=== PATIENT | male | born 1990 | race Caucasian/White ===

== ENCOUNTER 2018-09-08 16:20 | Inpatient (IN) | payer MEDICARE ==
[~2018-09-08] VITALS: Ht 185.4 cm; Wt 67.7 kg
[2018-09-08 18:30] LABS: BASOPHILS # (AUTO) 0.1 /CMM (0.0-0.2); BASOPHILS % (AUTO) 1.2 % (0.0-2.0); EOSINOPHILS % (AUTO) 0.3 % (0.0-6.0); HEMATOCRIT 46 % (39-51); HEMOGLOBIN 15.1 g/dL (13.5-17.5); LYMPHOCYTES # (AUTO) 1.2 /CMM (0.8-4.8); LYMPHOCYTES % (AUTO) 14.9 % (20.0-44.0); MEAN CORPUSCULAR HGB CONC 33 g/dl (31.0-36.0); MEAN CORPUSCULAR VOLUME 89 fL (80-96); MONOCYTES # (AUTO) 0.9 /CMM (0.1-1.30); MONOCYTES % (AUTO) 11.3 % (2.0-12.0); NEUTROPHILS # (AUTO) 5.7 /CMM (1.8-8.9); NEUTROPHILS % (AUTO) 72.3 % (43.0-81.0); PLATELET COUNT (AUTO) 140 /CMM (150-450); RED BLOOD CELL COUNT(AUTO) 5.17 MIL/uL (4.5-6.0); WHITE BLOOD COUNT (AUTO) 7.9 K/uL (4.3-11.0)
[2018-09-08 18:41] LABS: CALCIUM, SERUM 10.2 mg/dL (8.5-10.1)
[2018-09-08 18:47] LABS: ALBUMIN 3.8 g/dL (3.4-5.0); BILIRUBIN,DIRECT 0.2 mg/dL (0.0-0.2); BILIRUBIN,TOTAL 1.1 mg/dL (0.2-1.0); TOTAL PROTEIN, SERUM 7.7 g/dL (6.4-8.2)
--- NOTE | 2018-09-08 19:43 | NUR ---
TO ER BED 13 C/O COUGH AND NAUSEA SINCE YESTERDAY. PT AA/OX 4. RFID DEVELOPER AT BEDSIDE. O2 SAT ROOM AIR 91%. PT ON 4LPM VIA NC. PA AWARE. SKIN PINK, WARM, MOIST. NAD. ALL OTHER VSS. PEDAL PULSES PRESENT. WILL CONTINUE TO MONITOR.
[2018-09-08] MEDS ORDERED: CEFTRIAXONE 1GM BAG (ER ONLY) 1 GM/50 ML PIGGYBACK IV ONE (20:00)
[2018-09-08] MEDS ORDERED: IV NS 0.9% 1,000 ML BAG IV ONE (20:00)
[2018-09-08] MEDS ORDERED: AZITHROMYCIN 500 MG in IV D5W 250 ML IV ONE (20:00)
[2018-09-08] MEDS ORDERED: CEFTRIAXONE 1 G VIAL ONE (20:07)
[2018-09-08] MEDS ORDERED: AZITHROMYCIN 500 MG VIAL ONE (20:25)
--- NOTE | 2018-09-08 21:00 | NUR ---
REPORT GIVEN TO M/S JAIRON LOPEZ
--- NOTE | 2018-09-08 21:19 | NUR ---
PT TRANSPORTED TO M/S UNIT WITH STABLE CONDITION. VSS. URIARTE.
[2018-09-08 21:20] VITALS: BP 100/53
[2018-09-08 21:25] VITALS: BP 100/53
[2018-09-08] MEDS ORDERED: Z GUARD REMEDY 2 OZ OINT TP PRN (22:00)
[2018-09-08] MEDS ORDERED: MAGNESIUM HYDROXIDE 30 ML UDC PO PRN (22:00)
[2018-09-08] MEDS ORDERED: ONDANSETRON HCL/PF 4 MG/2 ML VIAL IVP PRN (22:00)
[2018-09-08] MEDS ORDERED: HYDROCODONE/APAP 5/325MG 1 EACH TABLET PO PRN (22:00)
[2018-09-08] MEDS ORDERED: MAG HYDROX/AL HYDROX/SIMETH 30 ML UDC PO PRN (22:00)
--- NOTE | 2018-09-08 22:28 | NUR ---
RECEIVE PT FROM E.R [facility] AT 2120 PT A/OX 3 AMBULATORY, CAREGIVER AT BEDSIDE, AWAKE NORMAL TONE NORMAL IN APPEARANCE, AFEBRILE, HEAD TO TOE ASSESSMENT IS DONE SKIN IS INTACT, + DIFFUSE RHONCHI IN LUNGS, NO RALES OR WHEEZES, ENCOURAGE AND EDUCATE PT SPIT SECRETIONS. HEAD OF BED ELEVATED AT ALL TIMES. ON 4LPM VIA NC 02 SAT AT 99%. NO SOB, RESPIRATIONS EVEN AND UNLABORED, NO EDEMA, KEPT CLEAN AND DRY AND COMFORT. SAFERTY MEASURES IN PLACE. WILL MONITOR
[2018-09-08] MEDS: IV NS 0.9% 1,000 ML IV PRN (22:38)
--- NOTE | 2018-09-09 04:37 | NUR ---
MS RN NOTES CHECKED TEMP AT 102.2 RELAYED TO HOSPITALIST SPOKE TO ANJANA VIGIL PER YARITZA ORDER BLOOD CULTURE NOTED AND CARRIED OUT. WILL CONTINUE TO MONITOR TYLENOL GIVEN AND COOLING MEASURES RENDERED.
[2018-09-09] MEDS: ACETAMINOPHEN 325 MG TABLET PO PRN (04:51)
--- NOTE | 2018-09-09 05:37 | NUR ---
MS RN NOTES TEMP AT 98.7
--- NOTE | 2018-09-09 06:09 | NUR ---
MS RN CLOSING NOTES ASLEEP AND EASILY AWAKEN, ON 4LPM VIA NC 02 SAT AT 98% NOT IN DISTRESS. RESPIRATION EVEN AND UNLABORED. KEPT CLEAN AND DRY AND COMFORTABLE, ALL NURSING CARE RENDERED. NEEDS ATTENDED AND ANTICIPATED. GOOD SKIN CARE. NO COMPLAIN OF PAIN. ON LOW BED AT ALL TIMES TO ENSURE SAFETY. SAFE HAZARD FREE ENVIRONMENT PROVIDED. CALL LIGHT WITHIN EASY TO REACH. WILL ENDORSE NEXT SHIFT CONTINUITY OF CARE.
[2018-09-09 07:16] LABS: LYMPHOCYTES # (AUTO) 0.7 /CMM (0.8-4.8)
--- NOTE | 2018-09-09 07:20 | NUR ---
RN OPENING NOTES RECEIVED PT. IN BED A&OX3. CAREGIVER IS AT BEDSIDE. PT. IS BREATHING ON OXYGEN AT 4L/MIN VIA NASAL CANNULA. PT. STARTED TO DESATURATE SP02 85%, PT. WAS PLACED ON A SIMPLE MASK ON 6L/MIN. NO S/S OF ACUTE DISTRESS. PT.'S PULSE WAS >100 -110 BPM. CHARGE NURSE WAS MADE AWARE, AND TERRY SORTO NP WAS CONTACTED FOR NEW ORDERS. TERRY SORTO ORDERED BREATHING TREATMENTS PRN. IV FLUIDS RUNNING AT 75 ML/HR. URINAL IS AT BEDSIDE. PT. IS COUGHING UP PHLEGM AND HAS A PRODUCTIVE COUGH. RESPIRATORY SPUTUM CULTURE WAS DONE AT THE BEDSIDE. BED IS IN LOWEST, AND LOCKED POSITION, AND CALL LIGHT IS WITHIN REACH. ALL NEEDS MET. WILL CONTINUE TO ASSESS AND MONITOR.
[2018-09-09 07:27] LABS: BASOPHILS % (AUTO) 0.3 % (0.0-2.0); HEMATOCRIT 43 % (39-51); HEMOGLOBIN 14.6 g/dL (13.5-17.5); LYMPHOCYTES % (AUTO) 10.1 % (20.0-44.0); MEAN CORPUSCULAR HGB CONC 34 g/dl (31.0-36.0); MEAN CORPUSCULAR VOLUME 91 fL (80-96); MONOCYTES # (AUTO) 0.6 /CMM (0.1-1.30); MONOCYTES % (AUTO) 8.8 % (2.0-12.0); NEUTROPHILS # (AUTO) 5.7 /CMM (1.8-8.9); NEUTROPHILS % (AUTO) 80.8 % (43.0-81.0); PLATELET COUNT (AUTO) 117 /CMM (150-450); RED BLOOD CELL COUNT(AUTO) 4.72 MIL/uL (4.5-6.0); WHITE BLOOD COUNT (AUTO) 7.1 K/uL (4.3-11.0)
[2018-09-09 07:33] LABS: ALBUMIN 3.3 g/dL (3.4-5.0); BILIRUBIN,DIRECT 0.6 mg/dL (0.0-0.2); BILIRUBIN,TOTAL 1.6 mg/dL (0.2-1.0); CALCIUM, SERUM 9.2 mg/dL (8.5-10.1); CREATININE 0.9 mg/dL (0.6-1.3); MAGNESIUM 1.9 mg/dL (1.8-2.4); PHOSPHORUS 2.8 mg/dL (2.5-4.9); POTASSIUM 3.6 mmol/L (3.5-5.1); TOTAL PROTEIN, SERUM 7.2 g/dL (6.4-8.2)
[2018-09-09 08:28] VITALS: BP 99/55
[2018-09-09 08:32] LABS: THYROID STIMULATING HORMONE 0.483 uIU/mL (0.358-3.74)
[2018-09-09] MEDS: IPRATROPIUM NEB FS 0.5 MG/2.5 ML AMPUL.NEB NEB PRN ×2 (09:02→16:35)
[2018-09-09] MEDS: ALBUTEROL FS 2.5 MG/3 ML VIAL.NEB NEB PRN ×2 (09:02→16:35)
[2018-09-09] MEDS ORDERED: DIPH25CA6 PO (09:50)
[2018-09-09] MEDS ORDERED: [UNRECOGNIZED DRUG - CODE] PO (09:50)
[2018-09-09] MEDS ORDERED: HYDR-4354 PO (09:50)
[2018-09-09] MEDS ORDERED: PSYL1PAC8 PO (09:50)
[2018-09-09] MEDS ORDERED: DOCU-141 PO (09:50)
[2018-09-09] MEDS ORDERED: FLUT16SP16 BNOSTRILS (09:50)
[2018-09-09] MEDS ORDERED: LORA10TA7 PO (09:50)
[2018-09-09] MEDS ORDERED: PARO10TA4 PO (09:50)
[2018-09-09] MEDS ORDERED: METH54TA PO (09:50)
[2018-09-09] MEDS ORDERED: CHOL100044 PO (09:50)
[2018-09-09] MEDS ORDERED: VENL75TA4 PO (09:50)
[2018-09-09] MEDS ORDERED: MELA5TAB PO (09:50)
[2018-09-09] MEDS: IV NS 0.9% 1,000 ML IV PRN ×2 (11:15→23:20)
[2018-09-09] MEDS ORDERED: diphenhydrAMINE HCL 25 MG CAPSULE PO PRN (11:30)
[2018-09-09] MEDS ORDERED: HYDROCODONE/APAP 10/325MG 1 EA TABLET PO PRN (11:30)
[2018-09-09] MEDS ORDERED: LORATADINE 10 MG TABLET PO PRN (11:30)
[2018-09-09] MEDS ORDERED: VENLAFAXINE 37.5 MG TABLET PO SCH (11:30)
[2018-09-09] MEDS ORDERED: CONCERTA 54 MG PO SCH (12:00)
[2018-09-09] MEDS: FLUTICASONE PROPIONATE 16 GM BOTTLE NS SCH (12:00)
[2018-09-09] MEDS ORDERED: VENLAFAXINE XR 75 MG CAP.SR.24H PO SCH ×2 (12:00)
[2018-09-09] MEDS: CHOLECALCIFEROL 1,000 UNIT TABLET (VIT D3) PO SCH (12:09)
[2018-09-09] MEDS: DOCUSATE SODIUM 100 MG CAPSULE PO SCH ×2 (12:09→17:11)
[2018-09-09] MEDS: VENLAFAXINE 37.5 MG TABLET PO SCH ×2 (12:09→17:14)
[2018-09-09 16:08] VITALS: BP 106/61
[2018-09-09] MEDS: LACTOBACILLUS RHAMNOSUS GG 1 EACH CAP.SPRINK PO SCH (17:11)
[2018-09-09] MEDS: ENSURE ENLIVE CHOC 237 ML CAN PO SCH (18:05)
--- NOTE | 2018-09-09 18:48 | NUR ---
RN CLOSING NOTES PT. IS IN BED AWAKE, A&OX3. CAREGIVER IS AT BEDSIDE. BREATHING UNLABORED ON OXYGEN AT 2L/MIN VIA NASAL CANNULA. NO SOB, PT. REPORTED HIS BREATHING IS DEFINITELY BETTER THAN THIS MORNING. PT. HAS A PRODUCTIVE COUGH, AND IS PRODUCING THICK, FROTHY GREEN PHLEGM. NO S/S OF ACUTE DISTRESS. IV FLUIDS RUNNING AT 75 ML/HR. URINAL IS WITHIN REACH. BED IS IN LOWEST, AND LOCKED POSITION. 2 SIDE RAILS UP, AND INSTRUCTED PT. TO USE CALL LIGHT WITHIN REACH. ALL NEEDS MET. WILL ENDORSE REPORT TO NURSE.
--- NOTE | 2018-09-09 19:35 | NUR ---
RN INITIAL NOTES: RECEIVED REPORT FROM ELMA RN, PT IN BED, SLEEPING, AROUSES TO TACTILE STIMULI. APPEARS CALM AND COMFORTABLE, CAREGIVER AT BED SIDE. PT ON 2L OXYGEN VIA NC, RESPIRATION EVEN AND UNLABORED. PT HAS BREATHING TREATMENT Q4HRS NEEDED. SAFETY PRECAUTIONS FOR FALL INITIATED, CALL LIGHT IN REACH, WILL CONTINUE MONITORING PT.
[2018-09-09 19:56] VITALS: BP 99/48
[2018-09-09 20:00] VITALS: BP 99/48
--- NOTE | 2018-09-09 20:00 | NUR ---
RN NOTES: CAREGIVER LEFT WITHOUT SAYING ANYTHING, I WAS TOLD ON THE REPORT THERE WILL BE 14/06 CAREGIVER TO THE PT.
--- NOTE | 2018-09-09 20:30 | NUR ---
RN NOTES: OFFERED BREATHING TREATMENT, BUT PT REFUSED, STATED NOT THIS TIME, DENIES ANY SOB, SPO2 ON 2L 95%, RESPIRATION EVEN AND UNLABORED
--- NOTE | 2018-09-09 20:30 | NUR ---
Patient is developmentally delayed due to Autism. He lives locally alone. He has 24hrs caregiver [facility]. He is ambulatory, requires assistance with adl's. Current plan is to return home with caregiver providing ride. Addendum: 09/09/18 at 2252 by BELKIS HO RN Amended: Links added.
--- NOTE | 2018-09-09 21:00 | NUR ---
RN NOTES: SPOKED WITH ROLLER SKATER BELKIS, INFORMED THAT PT'S CAREGIVER WAS NOT IN THE ROOM, AND LEFT AN HOUR AGO,AND THAT THERE'S NO NUMBER PROVIDED BY THE CAREGIVER FOR US TO CALL. BELKIS STATED TO CALL HER ONCE CAREGIVER CAME BACK BECAUSE SHE NEEDS TO TALK TO CAREGIVER.
[2018-09-09] MEDS: CEFTRIAXONE 1 G in IV D5W 50 ML IV SCH (21:12)
[2018-09-09 22:00] VITALS: BP 100/51
--- NOTE | 2018-09-09 22:00 | NUR ---
RN NOTES: PREVIOUS IV ACCESS NOTED TO BE LEAKING, REMOVED AND APPLIED PRESSURE DRESSING. RESTARTED NEW IV ON RIGHT FA G20 USING ACCU VEIN, WITH GOOD BLOOD RETURN, SECURED WITH DRESSING AND PROPERLY LABELED.
--- NOTE | 2018-09-09 22:10 | NUR ---
RN NOTES: OFFERED TO THE PT THE BREATHING TREATMENT, DISCUSSED ITS IMPORTANCE, BUT PT STATED NOT THIS TIME, AND HE WANTS IT TOMORROW MORNING INSTEAD. INFORMED PT IN CASE OF ANY SHORTNESS OF BREATH OR DIFFICULTY BREATHING, TO CALL RN SO WE CAN HAVE RT GIVE HIS BREATHING TREATMENT. INFORMED PT HE CAN GET BREATHING TREATMENT Q4HRS NEEDED. PT AGREE AND UNDERSTAND
[2018-09-09] MEDS: AZITHROMYCIN 500 MG in IV D5W 250 ML IV SCH (22:27)
--- NOTE | 2018-09-09 22:30 | NUR ---
rn notes: complete linen change provided by business department chair, also bed bath provided at this time
--- NOTE | 2018-09-09 23:16 | NUR ---
N NOTES: OFFERED BREATHING TREATMENT TO PT TO HELP COUGH OUT MORE SECRETIONS, BUT PT REFUSED, SPO2 ON 2L NC IS 94%, RESPIRATION EVEN AND UNLABORED, NO DISTRESS NOTED. WILL CONTINUE TO MONITOR
--- NOTE | 2018-09-10 00:52 | NUR ---
RN NOTES: PT REQUESTED FOR BREATHING TREATMENT, CONTACTED RT AT EXT [phone], STATED HE WILL COME SOON HE'S DONE WITH HIS PRN TREATMENT, PT SPO2 ON 2L IS 90%, INCREASE O2 FLOW RATE TO 3L, SPO2 STABLE ON 93%. DENIES ANY SOB BUT PT CLAIMED HE'S STILL COUGHING THICK FROTHY SPUTUM
[2018-09-10] MEDS: IPRATROPIUM NEB FS 0.5 MG/2.5 ML AMPUL.NEB NEB PRN ×3 (01:12→17:55)
[2018-09-10] MEDS: ALBUTEROL FS 2.5 MG/3 ML VIAL.NEB NEB PRN ×3 (01:12→17:55)
--- NOTE | 2018-09-10 06:13 | NUR ---
RN NOTES: PT REQUESTING FOR HIS BREATHING TREATMENT, CONTACTED EXT [phone] FOR ASSIGNED RT FOR THE UNIT, P[ER RT ITS THEIR CHANGE OF SHIFT AND THE EARLIEST THE NEXT RT CAN COME WILL BE 0700AM, INFORMED RT IF THERE'S ANY WAY SOMEONE CAN COME TO DO THE TREATMENT IT WOULD BE GREATLY APPRECIATED. CHECKED PT'S SPO2, PT CURRENTLY ON 3L NC, SPO2 STABLE ON 94%
--- NOTE | 2018-09-10 06:17 | NUR ---
am care: second bed bath provided by lorena schneider at this time, also complete linen change provided
--- NOTE | 2018-09-10 06:20 | NUR ---
rn notes: assigned rt came to do the breathing treatment. greatly appreciated by the pt
--- NOTE | 2018-09-10 06:32 | NUR ---
rN CLOSING NOTES: PT rEMAINS A/O X3 HOWEVEr DELAYED DUE TO AUTISM, NO CAREGIVER CAME LAST NIGHT EVEN THOUGH PER REPORT IT WAS MENTIONED THAT PT HAS 24/7 CAREGIVER. PT REMAINS ON 3L OXYGEN VIA NC, RESPIRATION EVEN AND UNLABORED, SPO2 REMAINS TO BE STABLE ON 94_%. REMAINS WITH THICK FROTHY SPUTUM, PT ABLE TO COUGH OUT PHLEGM IN THE GREEN PLASTIC BAG. DENIES ANY PAIN AT THIS TIME. RFA IV ACCESS REMAINS PATENT AND FLUSHING WELL, INFUSING WITH NS AT 75ML/HR. VS REMAINS STABLE, NEEDS ATTENDED. BED ALARM SECURED, SAFETY PRECAUTIONS FOR FALL REMAINS ENGAGED, CALL LIGHT IN REACH, WILL ENDORSE TO DAY RN FOR SHADY.
[2018-09-10 07:08] LABS: BASOPHILS % (AUTO) 0.2 % (0.0-2.0); EOSINOPHILS % (AUTO) 1.1 % (0.0-6.0); HEMATOCRIT 40 % (39-51); HEMOGLOBIN 13.9 g/dL (13.5-17.5); LYMPHOCYTES # (AUTO) 1.2 /CMM (0.8-4.8); LYMPHOCYTES % (AUTO) 20.8 % (20.0-44.0); MEAN CORPUSCULAR HGB CONC 35 g/dl (31.0-36.0); MEAN CORPUSCULAR VOLUME 91 fL (80-96); MONOCYTES # (AUTO) 0.4 /CMM (0.1-1.30); MONOCYTES % (AUTO) 7.5 % (2.0-12.0); NEUTROPHILS # (AUTO) 3.9 /CMM (1.8-8.9); NEUTROPHILS % (AUTO) 70.4 % (43.0-81.0); PLATELET COUNT (AUTO) 113 /CMM (150-450); WHITE BLOOD COUNT (AUTO) 5.6 K/uL (4.3-11.0)
[2018-09-10 07:10] LABS: CALCIUM, SERUM 8.6 mg/dL (8.5-10.1); CREATININE 0.7 mg/dL (0.6-1.3); POTASSIUM 3.6 mmol/L (3.5-5.1)
--- NOTE | 2018-09-10 07:15 | NUR ---
MS RN OPENING NOTE RECEIVED PATIENT IN BED. SLEEPING, EASILY AROUSED WITH VERBAL STIMULI. ORIENTED X2. ON 3L O2 VIA NC, TOLERATING WELL. IN NO APPARENT DISTRESS OR DISCOMFORT AT THIS TIME. RESPIRATIONS EVEN AND UNLABORED. DENIES PAIN AND SOB AT THIS TIME. PATIENT IS ABLE TO COMMUNICATE NEEDS. PATIENT WITH BRP, ABLE TO AMBULATE BUT ENCOURAGED TO USE CALL LIGHT IS NEEDS TO USE BATHROOM. RIGHT FA 20G IVC WITH FLUIDS RUNNING AT 75ML/HR. PATIENT KEPT CLEAN AND COMFORTABLE. ALL NEEDS ATTENDED. BED IN LOW LOCKED POSITION, SIDE RAILS UP X2, CALL LIGHT WITHIN EASY REACH. WILL CONTINUE TO MONITOR.
[2018-09-10 08:00] VITALS: BP 92/43
[2018-09-10] MEDS ORDERED: CONCERTA 54 MG PO SCH (09:00)
[2018-09-10] MEDS: LACTOBACILLUS RHAMNOSUS GG 1 EACH CAP.SPRINK PO SCH ×2 (09:13→16:37)
[2018-09-10] MEDS: PAROXETINE HCL 10 MG TABLET PO SCH (09:13)
[2018-09-10] MEDS: CHOLECALCIFEROL 1,000 UNIT TABLET (VIT D3) PO SCH (09:13)
[2018-09-10] MEDS: DOCUSATE SODIUM 100 MG CAPSULE PO SCH ×2 (09:13→16:37)
[2018-09-10] MEDS: VENLAFAXINE 37.5 MG TABLET PO SCH ×2 (09:14→16:37)
[2018-09-10] MEDS: FLUTICASONE PROPIONATE 16 GM BOTTLE NS SCH (09:15)
[2018-09-10] MEDS: ENSURE ENLIVE CHOC 237 ML CAN PO SCH ×2 (09:19→16:42)
[2018-09-10 16:00] VITALS: BP 113/66
[2018-09-10] MEDS: ACETAMINOPHEN 325 MG TABLET PO PRN (17:25)
--- NOTE | 2018-09-10 17:39 | NUR ---
PATIENT'S TEMPERATURE IS 100.8 ORALLY. APPLIED ICE PACKS ADMINISTERED PRN TYLENOL 650MG AT THIS TIME. DR. HOPPER NOTIFIED. WILL CONTINUE TO MONITOR AND CARRY OUT FURTHER ORDERS.
--- NOTE | 2018-09-10 17:41 | NUR ---
RECEIVED ORDER FROM DR HOPPER TO OBTAIN BLOOD CX IF BODY TEMPERATURE IS ABOVE 101. ORDER READ BACK AND VERIFIED. WILL CARRY OUT INDICATED.
--- NOTE | 2018-09-10 18:30 | NUR ---
PATIENT'S BODY TEMPERATURE DECREASED TO 98.4 AT THIS TIME. WILL CONTINUE TO MONITOR.
--- NOTE | 2018-09-10 19:20 | NUR ---
MS RN CLOSING NOTE PATIENT IN BED. ALERT ORIENTED X2. ON 2L O2 VIA NC, TOLERATING WELL. IN NO APPARENT DISTRESS OR DISCOMFORT AT THIS TIME. RESPIRATIONS EVEN AND UNLABORED. DENIES PAIN AND SOB AT THIS TIME. AFEBRILE AT THIS TIME. PATIENT IS ABLE TO COMMUNICATE NEEDS. PATIENT WITH BRP, ABLE TO AMBULATE, ENCOURAGED TO USE CALL LIGHT IF NEEDS TO USE BATHROOM, COMPLIANT. RIGHT FA 20G IVC WITH FLUIDS RUNNING AT 75ML/HR. PATIENT KEPT CLEAN AND COMFORTABLE. ALL ORDERS RENDERED, MEDICATIONS ADMINISTERED. CAREGIVER AT BEDSIDE AT THIS TIME. ALL NEEDS ATTENDED. BED IN LOW LOCKED POSITION, SIDE RAILS UP X2, CALL LIGHT WITHIN EASY REACH. WILL ENDORSE TO PM NURSE FOR SHADY.
--- NOTE | 2018-09-10 19:30 | NUR ---
RN INITIAL NOTES: RECEIVED REPORT FROM ADILSON DE LA O. PT RESTING IN BED, MET WITH CAREGIVER MIKE AT BED SIDE. PT ON 2L OXYGEN VIA NC, RESPIRATION EVEN AND UNLABORED, PT DENIES ANY SOB, DENIES ANY PAIN OR DISCOMFORT AT THIS TIME. GREEN PLASTIC BAG FOR COUGHING OUT SECRETIONS HANDY AT BEDSIDE. IV ACCESS RFA PATENT AND FLUSHING WELL INFUSING WITH NS AT 75ML/HR. PT REPORTED TO HAVE FEVER AROUND 1700 WHICH HE WAS GIVEN TYLENOL AND COOLING MEASURES FOR THAT., ALSO DR HOPPER MADE AWARE BY DAY RN, WITH ORDERS TO COLLECT BLOOD DRAW ONCE FEVER OVER 101. DISCUSSED PLAN OF CARE TO THE PT AND CAREGIVER. SAFETY PRECAUTIONS FOR FALL INITIATED, CALL LIGHT IN REACH, WILL CONTINUE MONITORING PT.
--- NOTE | 2018-09-10 19:50 | NUR ---
RN NOTES: TEMP AT THIS TIME 99.9, COOLING MEASURES CONTINUED, REMOVED EXTRA THICK BLANKETS, LAST TYLENOL GIVEN 1724. WILL CONTINUE MONITORING PT.
[2018-09-10 19:51] VITALS: BP 111/60
[2018-09-10 20:00] VITALS: BP 111/60
[2018-09-10] MEDS: CEFTRIAXONE 1 G in IV D5W 50 ML IV SCH (21:13)
--- NOTE | 2018-09-10 21:49 | NUR ---
RN NOTES: CONNECTED PT TO CONTINUOUS PULSE OXIMETRY, SPO2 94-95% ON 2L OXYGEN VIA NC. TEMP 98.6, WILL CONTINUE MONITORING PT
[2018-09-10] MEDS: AZITHROMYCIN 500 MG in IV D5W 250 ML IV SCH (21:50)
--- NOTE | 2018-09-10 22:42 | NUR ---
RN NOTES: MET WITH ONE OF PT'S CAREGIVER, SHE STATED SHE ALSO LIVE IN THE SAME APARTMENT WITH THE PT, AND SHE LOOKS AFTER THE PT, STATED SHE WILL STAY FOR A WHILE BUT WILL NOT BE ABLE TO STAY TILL AM BECAUSE SHE HERSELF IS COUGHING AND NEEDS SOME REST. UNDERSTAND THE SITUATION. RN WILL BE SITTING OUTSIDE PT'S ROOM TO MAKE SURE WHEN PT NEEDS SOMETHING IT WILL BE RESPONDED RIGHT AWAY.
[2018-09-11 00:14] VITALS: BP 100/55
[2018-09-11 04:24] VITALS: BP 98/55
[2018-09-11] MEDS: IV NS 0.9% 1,000 ML IV PRN ×2 (04:27→21:02)
--- NOTE | 2018-09-11 05:30 | NUR ---
RN NOTES: BEEN OFFERING BREATHING TREATMENT TO THE PT, BUT PT REFUSED STATED HE'S BREATHING IS BETTER.
--- NOTE | 2018-09-11 06:00 | NUR ---
RN NOTES: PER WILLY CHAMPION HE OFFERED BED BATH/SPONGEBATH BUT PT REFUSED, STATED HE DOESN'T FEEL LIKE IT. EDUCATE PT REGARDING IMPORTANCE OF GOOD PERSONAL HYGIENE.WILL OFFER AGAIN IN AM
--- NOTE | 2018-09-11 06:43 | NUR ---
RN CLOSING NOTES: PT REMAINS A/O X3, REMAINS ON 2L OXYGEN VIA NC, RESPIRATION EVEN AND UNLABORED, REMAINS ON CONTINUOUS PULSE OXIMETRY, SPO2 REMAINS STABLE ON 95%. RFA IV ACCESS REMAINS PATENT AND FLUSHING WELL, INFUSING WITH NS AT 75ML/HR. PT REMAINS WITH THICK FROTHY SPUTUM, PT ABLE TO COUGH OUT PHLEGM IN THE GREEN BAG. LATEST TEMP 98.5. VS REMAINS STABLE, NEEDS ATTENDED. BED ALARM SECURED, SAFETY PRECAUTIONS FOR FALL REMAINS ENGAGED, CALL LIGHT IN REACH, WILL ENDORSE TO DAY RN FOR SHADY.
[2018-09-11 07:00] LABS: CALCIUM, SERUM 9.3 mg/dL (8.5-10.1); CREATININE 0.8 mg/dL (0.6-1.3); MAGNESIUM 2.4 mg/dL (1.8-2.4); PHOSPHORUS 2.9 mg/dL (2.5-4.9); POTASSIUM 3.6 mmol/L (3.5-5.1)
--- NOTE | 2018-09-11 07:15 | NUR ---
MS RN OPENING NOTE RECEIVED PATIENT IN BED. ALERT ORIENTED X2. ON 2L O2 VIA NC, TOLERATING WELL WITH 98% SATURATION. PATIENT IS AFEBRILE AT THIS TIME. IN NO APPARENT DISTRESS OR DISCOMFORT AT THIS TIME. RESPIRATIONS EVEN AND UNLABORED. DENIES PAIN AND SOB AT THIS TIME. PATIENT IS ABLE TO COMMUNICATE NEEDS. PATIENT WITH BRP, ABLE TO AMBULATE BUT ENCOURAGED TO USE CALL LIGHT IF NEEDS TO USE BATHROOM. RIGHT FA 20G IVC WITH FLUIDS RUNNING AT 75ML/HR. PATIENT KEPT CLEAN AND COMFORTABLE. ALL NEEDS ATTENDED. BED IN LOW LOCKED POSITION, SIDE RAILS UP X2, CALL LIGHT WITHIN EASY REACH. WILL CONTINUE TO MONITOR.
[2018-09-11 07:57] LABS: ALBUMIN 2.9 g/dL (3.4-5.0); BILIRUBIN,DIRECT 0.4 mg/dL (0.0-0.2); BILIRUBIN,TOTAL 0.8 mg/dL (0.2-1.0); TOTAL PROTEIN, SERUM 7.3 g/dL (6.4-8.2)
[2018-09-11 08:00] VITALS: BP 92/52
[2018-09-11] MEDS: PAROXETINE HCL 10 MG TABLET PO SCH (09:21)
[2018-09-11] MEDS: VENLAFAXINE 37.5 MG TABLET PO SCH ×2 (09:21→16:21)
[2018-09-11] MEDS: CHOLECALCIFEROL 1,000 UNIT TABLET (VIT D3) PO SCH (09:21)
[2018-09-11] MEDS: DOCUSATE SODIUM 100 MG CAPSULE PO SCH ×2 (09:21→16:21)
[2018-09-11] MEDS: LACTOBACILLUS RHAMNOSUS GG 1 EACH CAP.SPRINK PO SCH ×2 (09:21→16:21)
[2018-09-11] MEDS: ENSURE ENLIVE CHOC 237 ML CAN PO SCH ×2 (09:22→16:21)
[2018-09-11] MEDS: FLUTICASONE PROPIONATE 16 GM BOTTLE NS SCH (09:22)
--- NOTE | 2018-09-11 10:00 | NUR ---
PATIENT IS SATURATING 98% ON 2L O2, TITRATED OXYGEN DOWN TO 1L PER DR. HOPPER'S INSTRUCTIONS. SATURATION 94-95% AT THIS TIME. WILL CONTINUE TO MONITOR.
[2018-09-11] MEDS: ALBUTEROL FS 2.5 MG/3 ML VIAL.NEB NEB PRN (11:34)
[2018-09-11] MEDS: IPRATROPIUM NEB FS 0.5 MG/2.5 ML AMPUL.NEB NEB PRN (11:34)
--- NOTE | 2018-09-11 12:00 | NUR ---
PATIENT RECEIVED BREATHING TREATMENT. REMOVED NASAL CANNULA AT THIS TIME TO ASSESS PATIENT'S O2 SAT ON ROOM AIR. WILL CONTINUE TO MONITOR.
--- NOTE | 2018-09-11 12:20 | NUR ---
PATIENT'S O2 SATURATION DECREASED TO 90-91% ON ROOM AIR, PATIENT DENIES SOB. WILL CONTINUE WITH 1L O2 AT THIS TIME TO KEEP SATURATION ABOVE 93%. WILL CONTINUE TO MONITOR.
[2018-09-11 16:00] VITALS: BP 112/68
--- NOTE | 2018-09-11 18:15 | NUR ---
MS RN CLOSING NOTE PATIENT IN BED. ALERT ORIENTED X2. ON 1L O2 VIA NC, TOLERATING WELL. IN NO APPARENT DISTRESS OR DISCOMFORT AT THIS TIME. RESPIRATIONS EVEN AND UNLABORED. DENIES PAIN AND SOB AT THIS TIME. AFEBRILE AT THIS TIME. PATIENT IS ABLE TO COMMUNICATE NEEDS. PATIENT WITH BRP, ABLE TO AMBULATE, ENCOURAGED TO USE CALL LIGHT IF NEEDS TO USE BATHROOM, COMPLIANT. RIGHT FA 20G IVC WITH FLUIDS RUNNING AT 75ML/HR. PATIENT KEPT CLEAN AND COMFORTABLE. ALL ORDERS RENDERED, MEDICATIONS ADMINISTERED. ALL NEEDS ATTENDED. BED IN LOW LOCKED POSITION, SIDE RAILS UP X2, CALL LIGHT WITHIN EASY REACH. WILL ENDORSE TO PM NURSE FOR SHADY.
--- NOTE | 2018-09-11 19:40 | NUR ---
RN INITIAL NOTES: RECEIVED REPORT FROM ADILSON DE LA O. PT RESTING IN BED, CAREGIVER MIKE AT BED SIDE. PT ON 1.5L OXYGEN VIA NC, RESPIRATION EVEN AND UNLABORED, PT DENIES ANY SOB, DENIES ANY PAIN OR DISCOMFORT AT THIS TIME. NOTED IV ACCESS RFA IV ACCESS TO BE INFILTRATED, REMOVE IV, PRESSURED DRESSING APPLIED, WILL START A NEW IV ACCESS AFTER FINISHING REPORT. DISCUSSED PLAN OF CARE TO THE PT AND CAREGIVER. SAFETY PRECAUTIONS FOR FALL INITIATED, CALL LIGHT IN REACH, WILL CONTINUE MONITORING PT.
[2018-09-11 20:00] VITALS: BP 119/69
--- NOTE | 2018-09-11 20:30 | NUR ---
RN NOTES: RESTARTED NEW IV ACCESS ON RIGHT HAND USING G20, WITH GOOD BLOOD RETURN NOTED, SECURED WITH CLEAR TRANSPARENT DRESSING, PROPERLY LABELED,
[2018-09-11] MEDS: CEFTRIAXONE 1 G in IV D5W 50 ML IV SCH (21:02)
[2018-09-11 21:06] VITALS: BP 119/64
--- NOTE | 2018-09-11 21:18 | NUR ---
RN NOTES: TRIAL FOR PT ON ROOM AIR, SPO2 93%-95%, WILL CONTINUE MONITORING PT
[2018-09-11] MEDS: AZITHROMYCIN 500 MG in IV D5W 250 ML IV SCH (21:57)
--- NOTE | 2018-09-12 | NUR ---
RN NOTES: OFFERED BREATHING TREATMENT, PT REFUSED STATED HE DOESNT FEEL THE NEED FOR IT, HE STATED HE'S FEELING BETTER AND BREATHING BETTER
[2018-09-12 04:00] VITALS: BP 100/69
--- NOTE | 2018-09-12 06:41 | NUR ---
RN CLOSING NOTES: PT REMAINS A/O X3, REMAINS ON 1.5L OXYGEN VIA NC, RESPIRATION EVEN AND UNLABORED, REMAINS ON CONTINUOUS PULSE OXIMETRY, SPO2 REMAINS STABLE ON 94%. ON ROOM AIR, SPO2 93%, STABLE. RIGHT HAND A IV ACCESS REMAINS PATENT AND FLUSHING WELL, INFUSING WITH NS AT 75ML/HR. VS REMAINS STABLE, NEEDS ATTENDED. BED ALARM SECURED, SAFETY PRECAUTIONS FOR FALL REMAINS ENGAGED, CALL LIGHT IN REACH, WILL ENDORSE TO DAY RN FOR SHADY.
[2018-09-12 07:00] LABS: BASOPHILS % (AUTO) 0.4 % (0.0-2.0); EOSINOPHILS % (AUTO) 3.2 % (0.0-6.0); HEMATOCRIT 41 % (39-51); LYMPHOCYTES # (AUTO) 1.7 /CMM (0.8-4.8); LYMPHOCYTES % (AUTO) 32.2 % (20.0-44.0); MEAN CORPUSCULAR HGB CONC 34 g/dl (31.0-36.0); MEAN CORPUSCULAR VOLUME 90 fL (80-96); MONOCYTES # (AUTO) 0.4 /CMM (0.1-1.30); MONOCYTES % (AUTO) 8.5 % (2.0-12.0); NEUTROPHILS # (AUTO) 2.9 /CMM (1.8-8.9); NEUTROPHILS % (AUTO) 55.7 % (43.0-81.0); PLATELET COUNT (AUTO) 165 /CMM (150-450); RED BLOOD CELL COUNT(AUTO) 4.59 MIL/uL (4.5-6.0); WHITE BLOOD COUNT (AUTO) 5.2 K/uL (4.3-11.0)
[2018-09-12 07:24] LABS: CALCIUM, SERUM 9.1 mg/dL (8.5-10.1); CREATININE 0.8 mg/dL (0.6-1.3); MAGNESIUM 2.3 mg/dL (1.8-2.4); PHOSPHORUS 3.5 mg/dL (2.5-4.9); POTASSIUM 3.6 mmol/L (3.5-5.1)
--- NOTE | 2018-09-12 07:30 | NUR ---
RN NOTES PATIENT ASLEEP AT THIS TIME, CAREGIVER AT BEDSIDE, PATIENT EASILY AWAKEN. NO S/SX OF PAIN OR DISCOMFORT OBSERVED. ON O2 AT 1.5LPM VIA NC FOR COMFORT, NO SOB NOTED. KEPT COMFORTABLE, IVF INFUSING AND TOLERATING WELL, SAFETY MEASURES IN PLACED, CALL LIGHT WITHIN REACH, WILL CONTINUE TO MONITOR.
[2018-09-12] MEDS: ENSURE ENLIVE CHOC 237 ML CAN PO SCH (08:00)
[2018-09-12 08:13] VITALS: BP 99/60
[2018-09-12] MEDS: DOCUSATE SODIUM 100 MG CAPSULE PO SCH (08:41)
[2018-09-12] MEDS: CHOLECALCIFEROL 1,000 UNIT TABLET (VIT D3) PO SCH (08:41)
[2018-09-12] MEDS: LACTOBACILLUS RHAMNOSUS GG 1 EACH CAP.SPRINK PO SCH (08:41)
[2018-09-12] MEDS: PAROXETINE HCL 10 MG TABLET PO SCH (08:41)
[2018-09-12] MEDS: VENLAFAXINE 37.5 MG TABLET PO SCH (08:41)
[2018-09-12] MEDS: FLUTICASONE PROPIONATE 16 GM BOTTLE NS SCH (08:41)
[2018-09-12] MEDS ORDERED: ENSURE ENLIVE 237 ML LIQUID (VANILLA) PO SCH (09:00)
[2018-09-12] MEDS ORDERED: LACT1CAP72 PO (11:57)
[2018-09-12] MEDS ORDERED: GUAI5SYR PO (11:57)
[2018-09-12] MEDS ORDERED: AMOX-430 PO (11:57)
[2018-09-12] MEDS ORDERED: GUAIFENESIN/D-METHORPHAN HB 5 ML UDC PO SCH (12:00)
[2018-09-12] MEDS ORDERED: AMOX/CLAVULANATE 875 MG TABLET PO SCH (12:00)
[2018-09-12 15:51] VITALS: BP 112/76
--- NOTE | 2018-09-12 16:45 | NUR ---
RN NOTES PATIENT A/OX3, WITH CAREGIVER CONOR AT BEDSIDE, RECEIVED DISCHARGE INSTRUCTIONS AND VERBALIZED UNDERSTANDING. CAREGIVER CONOR STATED THAT THE PATIENT WILL BE GIVEN A 24/7 C[facility]GIVER [facility] ACC[facility] TO HER COORDINATOR. PRESCRIPTION PROVIDED AND EXPLAINED. PATIENT UNDERSTOOD MEDICATION INSTRUCTIONS. PIV REMOVED ON LEFT HAND. BELONGINGS RECONCILED. SKIN ASSESSMENT COMPLETED, SKIN DRY AND INTACT. PATIENT IN ROOM AIR SHOWS 95-98%, STILL NOTED WITH COUGHING BUT NO SHORTNESS OF BREATH OBSERVED. PATIENT LEFT THE FACILITY IN STABLE CONDITION, ACCOMPANIED BY CAREGIVER.
== END 2018-09-12 16:45 | disposition home or self-care (01) | DRG 193 ==
LOC: ER 16:23 → MED 20:58
PROVIDERS: ADMIT Nurse Practitioner Acute Care; ATTEND Nurse Practitioner Acute Care
DX: J15.9 Unspecified bacterial pneumonia (principal); J96.01 Acute respiratory failure with hypoxia; F84.0 Autistic disorder; Z68.1 Body mass index [BMI] 19.9 or less, adult; E44.1 Mild protein-calorie malnutrition; D69.6 Thrombocytopenia, unspecified; G47.00 Insomnia, unspecified; Z98.890 Other specified postprocedural states; E80.6 Other disorders of bilirubin metabolism; K80.20 Calculus of gallbladder without cholecystitis without obstruction; F41.9 Anxiety disorder, unspecified
CPT/HCPCS: 36415; 71045-TC; 71046; 76700-TC; 80048-TC; 80061-TC; 80074; 80076-TC; 83735-TC; 83880; 84100-TC; 84443-TC; 85025-TC; 87040-TC; 87070-TC; 87081-TC; 94799-TC; A4216; A4606; A6402; G0378; J0456; J0696; J7030; J7060; Z7610

== ENCOUNTER 2018-09-12 18:04 | Emergency (ER) | payer MEDICARE ==
[~2018-09-12] VITALS: Ht 182.9 cm; Wt 70.3 kg
[~2018-09-12 18:04] MED LIST: AMOX-430 PO; CHOL100044 PO; DIPH25CA6 PO; DOCU-141 PO; FLUT16SP16 BNOSTRILS; GUAI5SYR PO; HYDR-4354 PO; LACT1CAP72 PO; LORA10TA7 PO; MELA5TAB PO; METH54TA PO; PARO10TA4 PO; PSYL1PAC8 PO; VENL75TA4 PO; [UNRECOGNIZED DRUG - CODE] PO
--- NOTE | 2018-09-12 18:10 | NUR ---
AAOX3, BIBRA 89 C/O CHOKED WITH TERIAutoShagKI SANDWICH, PT FELT SOMETHING STUCK IN HIS THROAT. RR IS EVEN AND UNLABORED WITH NAD NOTED. SKIN IS WARM AND DRY. AWAITING MD FOR EVAL. SPEAKS IN FULL SENTENCES.
[2018-09-12] MEDS ORDERED: GLUCAGON,HUMAN RECOMBINANT 1 MG/VIAL VIAL IV ONE (19:00)
[2018-09-12] MEDS ORDERED: GLUCAGON,HUMAN RECOMBINANT 1 MG/VIAL VIAL ONE (19:12)
[2018-09-12] MEDS ORDERED: WATER FOR INJECTION,STERILE 10 ML ONE (19:14)
--- NOTE | 2018-09-12 20:33 | NUR ---
PT OK TO DISCHARGE HOME. IV removed. Catheter intact and site benign. Pressure and 4x4 applied to site. No bleeding noted.Patient discharged to home in stable condition. Written and verbal after care instructions given. Patient verbalizes understanding of instruction.
[2018-09-12 20:34] VITALS: BP 108/62
== END 2018-09-12 20:35 | disposition home or self-care (01) ==
LOC: ER 18:06
DX: F45.8 Other somatoform disorders (principal); J18.9 Pneumonia, unspecified organism
CPT/HCPCS: 71046; 96374; 99284; J1610; A4606; Z7610

== ENCOUNTER 2019-01-10 13:52 | Emergency (ER) | payer MEDICARE, MEDICAID ==
[~2019-01-10] VITALS: Ht 182.9 cm; Wt 70.3 kg
[2019-01-10 14:11] VITALS: BP 100/63
[2019-01-10] MEDS ORDERED: DEXAMETHASONE SOLN 1 MG/1 ML UDC PO ONE (15:30)
[2019-01-10] MEDS ORDERED: DEXAMETHASONE 1 MG TABLET ONE (15:34)
[2019-01-10] MEDS ORDERED: DEXAMETHASONE 4 MG TABLET ONE (15:35)
[2019-01-10] MEDS ORDERED: DEXAMETHASONE 1 MG TABLET PO ONE (16:00)
== END 2019-01-10 15:50 | disposition home or self-care (01) ==
LOC: ER 13:58
DX: R05 Cough (principal); F84.0 Autistic disorder; Z87.01 Personal history of pneumonia (recurrent); Z79.899 Other long term (current) drug therapy
CPT/HCPCS: 71046; 99283; A4606; J8540 ×2

== ENCOUNTER 2019-10-01 22:29 | Emergency (ER) | payer MEDICARE, MEDICAID ==
[~2019-10-01] VITALS: Ht 182.9 cm; Wt 70.3 kg
[~2019-10-01 22:29] MED LIST changes: +DIPH25CA51 PO; -DIPH25CA6 PO
--- NOTE | 2019-10-01 22:30 | NUR ---
BIBSELClifford W/ CAREGIVER C/O INTERMITTENT NOSEBLEED EVERY NIGHT SINCE WED. NO ACTIVE NOSEBLEED UPON ARRIVAL IN ED. TO ER BED 13, HOOKED TO MONITOR, CHANGED TO HOSP GOWN, AWAITING MD STARKEY.
--- NOTE | 2019-10-01 22:58 | NUR ---
DR SHORE AT BEDSIDE
--- NOTE | 2019-10-01 23:27 | NUR ---
Patient discharged to home with caregiver in stable condition. Written and verbal after care instructions given. Patient verbalizes understanding of instruction.
[2019-10-01 23:28] VITALS: BP 101/52
== END 2019-10-01 23:28 | disposition home or self-care (01) ==
LOC: ER 22:32
DX: R04.0 Epistaxis (principal); Z79.899 Other long term (current) drug therapy

== ENCOUNTER 2022-12-30 10:56 | Emergency (ER) | payer MEDICARE, OTHER ==
[~2022-12-30] VITALS: Ht 182.9 cm; Wt 81.6 kg
--- NOTE | 2022-12-30 11:25 | NUR ---
RECEIVED pt 32 yrs male walking in from home accompany allen CASTORENA ( [phone] FOR EVALUATION of elevated potusume
--- NOTE | 2022-12-30 11:45 | NUR ---
INsertde ANGO CATHETER G 18 ON RT AC BLOOD DROW AND SENT TO LAB
--- NOTE | 2022-12-30 11:50 | NUR ---
SEEN BY DR. ASCENCIO
[2022-12-30] MEDS ORDERED: Calcium Gluconate 1GM/10ML 4.65 MEQ in IV NS 0.9% 100 ML IV ONE (12:00)
[2022-12-30 12:18] LABS: BASOPHILS % (AUTO) 0.3 % (0.0-2.0); EOSINOPHILS % (AUTO) 1.7 % (0.0-6.0); HEMATOCRIT 47 % (39-51); HEMOGLOBIN 15.6 g/dL (13.5-17.5); LYMPHOCYTES # (AUTO) 1.9 K/uL (0.8-4.8); LYMPHOCYTES % (AUTO) 37.1 % (20.0-44.0); MEAN CORPUSCULAR HGB CONC 33 g/dl (31.0-36.0); MEAN CORPUSCULAR VOLUME 91 fL (80-96); MONOCYTES # (AUTO) 0.3 K/uL (0.1-1.30); MONOCYTES % (AUTO) 6.6 % (2.0-12.0); NEUTROPHILS # (AUTO) 2.8 K/uL (1.8-8.9); NEUTROPHILS % (AUTO) 54.3 % (43.0-81.0); PLATELET COUNT (AUTO) 162 K/uL (150-450); RED BLOOD CELL COUNT(AUTO) 5.13 MIL/uL (4.5-6.0); WHITE BLOOD COUNT (AUTO) 5.2 K/uL (4.3-11.0)
[2022-12-30 12:47] LABS: CALCIUM, SERUM 9.6 mg/dL (8.5-10.1); CARBON DIOXIDE 31 mmol/L (21-32); CHLORIDE 106 mmol/L (98-107); CREATININE 1.1 mg/dL (0.6-1.3); GLUCOSE 79 mg/dL (74-106); POTASSIUM 4.1 mmol/L (3.5-5.1); SODIUM SERUM 143 mmol/L (136-145); UREA NITROGEN, BLOOD 14 mg/dL (7-18)
[2022-12-30] MEDS ORDERED: IV NS 0.9% 1,000 ML IV ONE (13:30)
[2022-12-30 14:59] VITALS: BP 134/84
== END 2022-12-30 15:00 ==
LOC: ER 11:46
DX: E86.0 Dehydration (principal); R00.1 Bradycardia, unspecified; F84.0 Autistic disorder; Z79.899 Other long term (current) drug therapy
CPT/HCPCS: 99291; 96365; 96361; 93005 ×3; 71045; 85025; 80048; 83735; 36415; 84484; 83880; J0610; J7030 ×2; A4223

== ENCOUNTER → 2023-11-23 | Emergency (ER) | payer MEDICARE, OTHER ==
[~2023-11-23] VITALS: Ht 182.9 cm; Wt 81.6 kg
[2023-11-23 18:29] VITALS: BP 110/65; TEMP 98; O2SAT 99
== END | disposition home or self-care (01) ==
LOC: ER 13:39
DX: R06.6 Hiccough (principal); Z79.899 Other long term (current) drug therapy

== ENCOUNTER 2023-12-12 12:16 | Emergency (ER) | payer MEDICARE, OTHER ==
[~2023-12-12] VITALS: Ht 170.2 cm; Wt 76.2 kg
[2023-12-12] MEDS ORDERED: BENZONATATE 100 MG CAPSULE PO ONE (13:30)
[2023-12-12] MEDS ORDERED: BENZONATATE 100 MG CAPSULE PO PRN (13:30)
[2023-12-12] MEDS ORDERED: ALBU18HF2 INH (13:51)
[2023-12-12] MEDS ORDERED: BENZ-13 PO (13:51)
[2023-12-12 14:02] VITALS: BP 103/67; TEMP 98.7; O2SAT 99
== END 2023-12-12 14:02 | disposition home or self-care (01) ==
LOC: ER 12:27
DX: R05.9 Cough, unspecified (principal)
CPT/HCPCS: 71045-TC

== ENCOUNTER 2024-04-04 11:51 | Emergency (ER) | payer MEDICARE, OTHER ==
[~2024-04-04] VITALS: Ht 170.2 cm; Wt 77.1 kg
[~2024-04-04 11:51] MED LIST changes: +ALBU18HF2 INH; +BENZ-13 PO
[2024-04-04] MEDS ORDERED: ONDANSETRON HCL/PF 4 MG/2 ML VIAL ONE (12:21)
[2024-04-04] MEDS ORDERED: FAMOTIDINE/PF INJ 20 MG/2 ML VIAL IV ONE (12:22)
[2024-04-04 12:23] LABS: BASOPHILS % (AUTO) 0.3 % (0.0-2.0); EOSINOPHILS # (AUTO) 0.3 K/uL (0.0-0.7); EOSINOPHILS % (AUTO) 2.8 % (0.0-6.0); HEMATOCRIT 56 % (39-51); LYMPHOCYTES # (AUTO) 3.1 K/uL (0.8-4.8); LYMPHOCYTES % (AUTO) 26.5 % (20.0-44.0); MEAN CORPUSCULAR HEMOGLOBIN 30 PG (26.0-33.0); MEAN CORPUSCULAR HGB CONC 34 g/dl (31.0-36.0); MEAN CORPUSCULAR VOLUME 89 fL (80-96); MONOCYTES # (AUTO) 0.5 K/uL (0.1-1.30); MONOCYTES % (AUTO) 4.4 % (2.0-12.0); NEUTROPHILS # (AUTO) 7.8 K/uL (1.8-8.9); PLATELET COUNT (AUTO) 247 K/uL (150-450); RED BLOOD CELL COUNT(AUTO) 6.31 MIL/uL (4.5-6.0); RED CELL DISTRIBUTION WIDTH 13.9 % (11.5-15.0); WHITE BLOOD COUNT (AUTO) 11.8 K/uL (4.3-11.0)
[2024-04-04] MEDS: ONDANSETRON HCL/PF 4 MG/2 ML VIAL IVP ONE (12:27)
[2024-04-04] MEDS: FAMOTIDINE/PF INJ 20 MG/2 ML VIAL IV ONE (12:27)
[2024-04-04] MEDS: IV NS 0.9% 1,000 ML BAG IV ONE (12:27)
[2024-04-04 12:28] LABS: CALCIUM, SERUM 9.7 mg/dL (8.5-10.1); CARBON DIOXIDE 23 mmol/L (21-32); CHLORIDE 108 mmol/L (98-107); CREATININE 1.2 mg/dL (0.6-1.3); GLUCOSE 128 mg/dL (74-106); POTASSIUM 3.1 mmol/L (3.5-5.1); SODIUM SERUM 143 mmol/L (136-145); UREA NITROGEN, BLOOD 11 mg/dL (7-18)
[2024-04-04 12:35] LABS: ALANINE AMINOTRANSFERASE 54 U/L (12-78); ALBUMIN 4.1 g/dL (3.4-5.0); ALKALINE PHOSPHATASE 262 U/L (46-116); ASPARTATE AMINOTRANSFERASE 27 U/L (15-37); BILIRUBIN,DIRECT 0.1 mg/dL (0.0-0.2); BILIRUBIN,TOTAL 0.7 mg/dL (0.2-1.0); LIPASE 28 U/L (16-77); TOTAL PROTEIN, SERUM 7.9 g/dL (6.4-8.2)
[2024-04-04 12:48] LABS: APPEARANCE,URINE Clear (CLEAR); BILIRUBIN,URINE Negative (NEGATIVE); BLOOD, URINE Negative Ery/uL (NEGATIVE); COLOR,URINE YELLOW (YELLOW); KETONES,URINE Negative (NEGATIVE); LEUKOCYTE ESTERASE ,URINE Negative (NEGATIVE); NITRITE, URINE Negative (NEGATIVE); PROTEIN,URINE Negative (NEGATIVE); UGLUCOSE Negative (NEGATIVE); UROBILINOGEN,URINE 0.2 EU/dL (0.2)
[2024-04-04] MEDS ORDERED: AMOX-430 PO (13:23)
[2024-04-04] MEDS ORDERED: POTASSIUM CHLORIDE 20 MEQ POWDER PACKET ONE (13:32)
[2024-04-04] MEDS ORDERED: AMOX/CLAVULANATE 875 MG TABLET ONE (13:33)
[2024-04-04] MEDS: POTASSIUM CHLORIDE 20 MEQ POWDER PACKET PO ONE (13:42)
[2024-04-04] MEDS: AMOX/CLAVULANATE 875 MG TABLET PO ONE (13:42)
[2024-04-04 13:55] VITALS: BP 103/68; TEMP 97.5; O2SAT 96
== END 2024-04-04 13:55 | disposition home or self-care (01) ==
LOC: ER 11:54
DX: K52.9 Noninfective gastroenteritis and colitis, unspecified (principal); R10.84 Generalized abdominal pain; R11.2 Nausea with vomiting, unspecified; Z79.899 Other long term (current) drug therapy
CPT/HCPCS: 99285; 74176; 96374; 96375; 93005; 85025; 80048; 87086; 83690; 80076; 81003; 36415; 84484; J3490; J2405; J7030

== ENCOUNTER 2024-11-04 13:43 | Emergency (ER) | payer OTHER, MEDICAID ==
[~2024-11-04] VITALS: Ht 182.9 cm; Wt 90.7 kg
[2024-11-04] MEDS ORDERED: AMOX-430 PO (15:47)
[2024-11-04] MEDS ORDERED: AMOX/CLAVULANATE 875 MG TABLET ONE (16:20)
[2024-11-04] MEDS: AMOX/CLAVULANATE 875 MG TABLET PO ONE (16:23)
[2024-11-04 18:05] VITALS: BP 105/66; TEMP 98.6; O2SAT 99
== END 2024-11-04 16:30 | disposition home or self-care (01) ==
LOC: ER 13:56
DX: J18.9 Pneumonia, unspecified organism (principal); F84.0 Autistic disorder; Z79.899 Other long term (current) drug therapy; Z20.822 Contact with and (suspected) exposure to COVID-19
CPT/HCPCS: 71045-TC